=== PATIENT | male | born 1995 | race Caucasian/White ===

== ENCOUNTER → 2016-06-29 | Outpatient (CLI) | payer OTHER | LOC: CIMAGING 12:14 | PROVIDERS: ATTEND Family Medicine | DX: S52.612A Displaced fracture of left ulna styloid process, initial encounter for closed fracture (principal) | CPT/HCPCS: 73110-PO ==

== ENCOUNTER → 2017-05-24 | Outpatient (CLI) | payer OTHER | LOC: CIMAGING 12:20 | PROVIDERS: ATTEND Family Medicine | DX: M25.511 Pain in right shoulder (principal); W19.XXXA Unspecified fall, initial encounter; R93.8 Abnormal findings on diagnostic imaging of other specified body structures | CPT/HCPCS: 73030-PO ==

== ENCOUNTER → 2017-08-18 | Outpatient (CLI) | payer OTHER | LOC: FIMAGING 07:02 | PROVIDERS: ATTEND Family Medicine | DX: S43.431A Superior glenoid labrum lesion of right shoulder, initial encounter (principal); M75.21 Bicipital tendinitis, right shoulder ==

== ENCOUNTER → 2017-09-30 | Outpatient (CLI) | payer OTHER | LOC: CIMAGING 11:50 | PROVIDERS: ATTEND Family Medicine | DX: M25.522 Pain in left elbow (principal); W19.XXXA Unspecified fall, initial encounter | CPT/HCPCS: 73080-PO ==